=== PATIENT | male | born 1975 | race Caucasian/White ===

== ENCOUNTER → 2016-10-11 | Outpatient (CLI) | payer BC ==
[2016-10-11 16:40] LABS: ALT 56 U/L (21-72); AST 33 U/L (17-59)
[2016-10-11 17:30] LABS: Basophils % (A) 1 %; CH 33.4; CHCM 35.8; Eosinophils # (A) 0.1 k/uL (0-0.7); Eosinophils % (A) 3 %; HCT 45.1 % (39.0-53.0); HDW 2.77; HGB 15.3 gm/dL (13.0-17.5); Luc # (Auto) 0.08; Luc % (Auto) 2; Lymphocytes # (A) 1.4 k/uL (1.0-4.8); Lymphocytes % (A) 34 %; MCH 31.8 pg (25.0-35.0); MCV 93.7 fL (80.0-100.0); Mean Platelet Volume 7.8; Monocytes # (A) 0.3 k/uL (0-1.0); Monocytes % (A) 6 %; Neutrophils # (A) 2.3 k/uL (1.3-7.7); Neutrophils % (A) 55 %; RBC 4.81 m/uL (4.30-5.90); RDW 11.9 % (11.5-15.5); WBC 4.2 k/uL (3.8-10.6); WBC (Perox) 4.26
== END | disposition home or self-care (01) ==
LOC: LABWHC1 15:35
PROVIDERS: ATTEND Physician Assistant
DX: K76.9 Liver disease, unspecified (principal); R53.83 Other fatigue
CPT/HCPCS: 36415; 84450; 84460; 85025; 86480

== ENCOUNTER → 2017-05-03 | Outpatient (CLI) | payer BC ==
[2017-05-03 09:52] LABS: ALT 40 U/L (21-72); AST 31 U/L (17-59)
[2017-05-03 10:00] LABS: HCT 42.8 % (39.0-53.0); HDW 2.73; HGB 16.3 gm/dL (13.0-17.5); MCH 36.1 pg (25.0-35.0); MCV 94.8 fL (80.0-100.0); RBC 4.51 m/uL (4.30-5.90); RDW 18.7 % (11.5-15.5); WBC 4.8 k/uL (3.8-10.6); WBC (Perox) 5.91
[2017-05-03 10:01] LABS: Anisocytosis Moderate; Basophils % (A) 1 %; Eosinophils % (A) 3 %; Lymphocytes % (A) 36 %; Mean Platelet Volume 8.8; Monocytes % (A) 13 %; Neutrophils % (A) 44 %
[2017-05-03 10:02] LABS: Eosinophils # (A) 0.2 k/uL (0-0.7); Luc # (Auto) 0.17; Luc % (Auto) 4; Lymphocytes # (A) 1.7 k/uL (1.0-4.8); Monocytes # (A) 0.6 k/uL (0-1.0); Neutrophils # (A) 2.1 k/uL (1.3-7.7)
== END | disposition home or self-care (01) ==
LOC: LABWHC1 09:07
PROVIDERS: ATTEND Physician Assistant
DX: R53.83 Other fatigue (principal)
CPT/HCPCS: 36415; 84450; 84460; 85025; 86480

== ENCOUNTER → 2017-06-24 | Outpatient (CLI) | payer BC ==
[2017-06-24 14:47] LABS: Basophils % (A) 1 %; CH 33.3; Eosinophils # (A) 0.2 k/uL (0-0.7); Eosinophils % (A) 4 %; HCT 45.2 % (39.0-53.0); HGB 15.6 gm/dL (13.0-17.5); Luc % (Auto) 2; Lymphocytes % (A) 37 %; MCH 32.9 pg (25.0-35.0); MCHC 34.5 g/dL (31.0-37.0); MCV 95.4 fL (80.0-100.0); Mean Platelet Volume 6.3; Monocytes # (A) 0.3 k/uL (0-1.0); Monocytes % (A) 6 %; Neutrophils # (A) 2.7 k/uL (1.3-7.7); Neutrophils % (A) 50 %; RBC 4.74 m/uL (4.30-5.90); RDW 12.1 % (11.5-15.5); WBC 5.4 k/uL (3.8-10.6); WBC (Perox) 5.02
[2017-06-24 14:51] LABS: ALT 50 U/L (21-72); AST 32 U/L (17-59); Alkaline Phosphatase 71 U/L (38-126); Anion Gap 9 mmol/L; Blood Urea Nitrogen 15 mg/dL (9-20); Calcium 9.9 mg/dL (8.4-10.2); Carbon Dioxide 28 mmol/L (22-30); Chloride 105 mmol/L (98-107); Cholesterol 259 mg/dL (<200); Glucose 94 mg/dL (74-99); HDL Cholesterol 52 mg/dL (40-60); Non-African American GFR(MDRD) >60 (>60 ml/min/1.73 sqM); Potassium 5.5 mmol/L (3.5-5.1); Sodium 142 mmol/L (137-145); Total Bilirubin 0.7 mg/dL (0.2-1.3); Total Protein 7.3 g/dL (6.3-8.2)
== END | disposition home or self-care (01) ==
LOC: LABWHC1 14:07
PROVIDERS: ATTEND Physician Assistant
DX: Z00.00 Encounter for general adult medical examination without abnormal findings (principal); R53.83 Other fatigue; Z13.220 Encounter for screening for lipoid disorders
CPT/HCPCS: 36415; 80053; 80061; 82306; 84439; 84443; 85025

== ENCOUNTER → 2017-12-25 | Outpatient (CLI) | payer BC ==
[2017-12-25 15:05] LABS: Basophils % (A) 1 %; Eosinophils # (A) 0.3 k/uL (0-0.7); Eosinophils % (A) 4 %; HCT 43.1 % (39.0-53.0); HGB 15.3 gm/dL (13.0-17.5); Lymphocytes # (A) 2.8 k/uL (1.0-4.8); Lymphocytes % (A) 38 %; MCH 32.3 pg (25.0-35.0); MCHC 35.4 g/dL (31.0-37.0); MCV 91.4 fL (80.0-100.0); Mean Platelet Volume 6.8; Monocytes # (A) 0.3 k/uL (0-1.0); Monocytes % (A) 4 %; Neutrophils # (A) 3.6 k/uL (1.3-7.7); Neutrophils % (A) 50 %; Platelet Count 316 k/uL (150-450); RBC 4.72 m/uL (4.30-5.90); RDW 12.1 % (11.5-15.5); WBC 7.2 k/uL (3.8-10.6)
== END | disposition home or self-care (01) ==
LOC: LABWHC1 14:40
PROVIDERS: ATTEND Physician Assistant
DX: R53.83 Other fatigue (principal); K76.9 Liver disease, unspecified
CPT/HCPCS: 36415; 85025; 86480

== ENCOUNTER → 2018-05-21 | Outpatient (CLI) | payer BC ==
[2018-05-21 17:47] LABS: Basophils % (A) 1 %; Eosinophils # (A) 0.2 k/uL (0-0.7); Eosinophils % (A) 3 %; HCT 43.7 % (39.0-53.0); HGB 14.6 gm/dL (13.0-17.5); Lymphocytes # (A) 2.2 k/uL (1.0-4.8); Lymphocytes % (A) 35 %; MCHC 33.5 g/dL (31.0-37.0); MCV 92.5 fL (80.0-100.0); Mean Platelet Volume 6.9; Monocytes # (A) 0.3 k/uL (0-1.0); Monocytes % (A) 5 %; Neutrophils # (A) 3.4 k/uL (1.3-7.7); Neutrophils % (A) 55 %; Platelet Count 301 k/uL (150-450); RBC 4.72 m/uL (4.30-5.90); WBC 6.3 k/uL (3.8-10.6)
[2018-05-21 18:05] LABS: ALT 34 U/L (21-72); AST 31 U/L (17-59); Albumin 4.3 g/dL (3.5-5.0); Alkaline Phosphatase 66 U/L (38-126); Anion Gap 7 mmol/L; Blood Urea Nitrogen 11 mg/dL (9-20); Calcium 9.4 mg/dL (8.4-10.2); Carbon Dioxide 27 mmol/L (22-30); Chloride 106 mmol/L (98-107); Glucose 114 mg/dL (74-99); Potassium 4.5 mmol/L (3.5-5.1); Sodium 140 mmol/L (137-145); Total Bilirubin 0.4 mg/dL (0.2-1.3)
== END | disposition home or self-care (01) ==
LOC: LABWHC1 16:51
PROVIDERS: ATTEND Physician Assistant
DX: K76.9 Liver disease, unspecified (principal); R53.83 Other fatigue
CPT/HCPCS: 36415; 80053; 85025

== ENCOUNTER → 2018-11-27 | Outpatient (CLI) | payer BC ==
[2018-11-27 14:13] LABS: Basophils # (A) 0.1 k/uL (0-0.2); Basophils % (A) 1 %; Eosinophils # (A) 0.3 k/uL (0-0.7); Eosinophils % (A) 4 %; HCT 42.8 % (39.0-53.0); HGB 14.9 gm/dL (13.0-17.5); Lymphocytes # (A) 2.4 k/uL (1.0-4.8); Lymphocytes % (A) 39 %; MCH 31.4 pg (25.0-35.0); MCHC 34.7 g/dL (31.0-37.0); MCV 90.6 fL (80.0-100.0); Mean Platelet Volume 6.2; Monocytes # (A) 0.3 k/uL (0-1.0); Monocytes % (A) 5 %; Neutrophils % (A) 50 %; Platelet Count 265 k/uL (150-450); RBC 4.73 m/uL (4.30-5.90); RDW 11.8 % (11.5-15.5); WBC 6.1 k/uL (3.8-10.6)
[2018-11-27 20:09] LABS: ALT 38 U/L (10-49); AST 35 U/L (14-35)
== END ==
LOC: LABWHC1 12:52
PROVIDERS: ATTEND Physician Assistant
DX: L40.9 Psoriasis, unspecified (principal)
CPT/HCPCS: 36415; 84450; 84460; 85025; 86480

== ENCOUNTER → 2019-02-15 | Outpatient (CLI) | payer BC ==
[2019-02-15 07:50] LABS: Basophils # (A) 0.1 k/uL (0-0.2); Basophils % (A) 1 %; Eosinophils # (A) 0.2 k/uL (0-0.7); Eosinophils % (A) 3 %; HCT 44.1 % (39.0-53.0); HGB 14.9 gm/dL (13.0-17.5); Lymphocytes # (A) 2.6 k/uL (1.0-4.8); Lymphocytes % (A) 39 %; MCH 31.3 pg (25.0-35.0); MCHC 33.7 g/dL (31.0-37.0); MCV 92.8 fL (80.0-100.0); Mean Platelet Volume 7.1; Monocytes # (A) 0.3 k/uL (0-1.0); Monocytes % (A) 4 %; Neutrophils # (A) 3.4 k/uL (1.3-7.7); Neutrophils % (A) 50 %; Platelet Count 296 k/uL (150-450); RBC 4.76 m/uL (4.30-5.90); RDW 13.6 % (11.5-15.5); WBC 6.7 k/uL (3.8-10.6)
[2019-02-15 11:41] LABS: ALT 40 U/L (10-49); AST 36 U/L (14-35); African American GFR (CKD) 120.8 (60.0-200.0); Albumin/Globulin Ratio 1.87 (1.60-3.17); Alkaline Phosphatase 66 U/L (41-126); BUN/Creat Ratio 11.11 Ratio (12.00-20.00); Calcium 9.5 mg/dL (8.7-10.3); Chloride 108 mmol/L (96-109); Cholesterol 251 mg/dL (0-200); Globulin 2.3 g/dL (1.6-3.3); Glucose 81 mg/dL (70-110); Potassium 4.4 mmol/L (3.5-5.5); Sodium 141 mmol/L (135-145); Total Bilirubin 0.5 mg/dL (0.3-1.2); Total Protein 6.6 g/dL (6.2-8.2)
== END | disposition home or self-care (01) ==
LOC: LABWHC1 06:44
PROVIDERS: ATTEND Physician Assistant
DX: R53.83 Other fatigue (principal); Z13.220 Encounter for screening for lipoid disorders
CPT/HCPCS: 36415; 80053; 80061; 82306; 83721; 84439; 84443; 85025

== ENCOUNTER → 2019-05-17 | Outpatient (CLI) | payer BC ==
[2019-05-17 12:13] LABS: Basophils # (A) 0.1 k/uL (0-0.2); Basophils % (A) 1 %; Eosinophils # (A) 0.3 k/uL (0-0.7); Eosinophils % (A) 4 %; HCT 45.8 % (39.0-53.0); HGB 15.9 gm/dL (13.0-17.5); Lymphocytes # (A) 2.3 k/uL (1.0-4.8); Lymphocytes % (A) 39 %; MCH 32.5 pg (25.0-35.0); MCHC 34.8 g/dL (31.0-37.0); MCV 93.4 fL (80.0-100.0); Mean Platelet Volume 6.9; Monocytes # (A) 0.3 k/uL (0-1.0); Monocytes % (A) 5 %; Neutrophils % (A) 49 %; Platelet Count 285 k/uL (150-450); RDW 14.1 % (11.5-15.5)
[2019-05-17 13:01] LABS: Erythrocyte Sedimentation Rate 3 mm/hr (0-15)
[2019-05-17 16:23] LABS: African American GFR (CKD) 106.4 (60.0-200.0); Albumin 4.6 g/dL (3.80-4.90); Albumin/Globulin Ratio 2.3 (1.60-3.17); Anion Gap 6.2 mmol/L (4.00-12.00); Calcium 9.8 mg/dL (8.7-10.3); Carbon Dioxide 28.8 mmol/L (21.6-31.8); Potassium 5.2 mmol/L (3.5-5.5); Total Bilirubin 0.7 mg/dL (0.2-1.2); Total Protein 6.6 g/dL (6.2-8.2)
== END | disposition home or self-care (01) ==
LOC: LABWHC1 11:20
PROVIDERS: ATTEND Physician Assistant
DX: R53.83 Other fatigue (principal); R63.4 Abnormal weight loss; E78.2 Mixed hyperlipidemia
CPT/HCPCS: 36415; 80053; 82105; 82150; 82607; 83690; 85025; 85652

== ENCOUNTER → 2019-05-25 | Outpatient (CLI) | payer BC ==
--- NOTE | 2019-05-25 11:09 | ECHOS ---
STRESS ECHOCARDIOGRAM INDICATIONS: Chest pain. MEDICATIONS: Vitamin D3, B12 BASELINE HEART RATE: 84 BASELINE BLOOD PRESSURE: 124/76 MAXIMUM HEART RATE: 176 MAXIMUM BLOOD PRESSURE: 175/75 METS: 11.5 MAXIMUM STAGE REACHED: 4 TOTAL EXERCISE TIME: 10:10 CLINICAL INFORMATION: Baseline rhythm is sinus mechanism, rate of 84, left axis deviation, poor R-Wave progression, baseline blood pressure 124/76 mmHg. Patient exercised on Rakan protocol for 10 minute 10 seconds reaching a peak rate 176 beats per minute which is equal to 99% maximum predicted heart rate. Peak blood pressure 179/75 mmHg. Test was terminated due to fatigue. There was no chest pain. Electrocardiographic monitoring revealed no evidence of diagnostic ischemic ST deviation. Baseline echocardiogram revealed normal wall thickening and motion. At peak exercise, there was normal wall motion and augmentation with no hypokinesis or dyskinesis. CONCLUSION: 1. Good exercise tolerance with normal electrocardiograph response to exercise. 2. Normal stress echocardiogram with no evidence of stress-induced ischemia. MMODL / IJN: [id number] /
== END | disposition home or self-care (01) ==
LOC: RADNMMAIN 08:54
PROVIDERS: ATTEND Internal Medicine
DX: R07.9 Chest pain, unspecified (principal)
CPT/HCPCS: 93351

== ENCOUNTER → 2019-05-31 | Outpatient (CLI) | payer BC ==
--- NOTE | 2019-05-31 07:51 | US ---
EXAMINATION TYPE: US liver DATE OF EXAM: 05/31/2019 COMPARISON: NONE CLINICAL HISTORY: R63.4 Abnormal weight loss. EXAM MEASUREMENTS: Liver Length: 16.8 cm Gallbladder Wall: 0.3 cm CBD: 0.4 cm Right Kidney: 10.8 x 4.6 x 4.8 cm Pancreas: Mostly obscured by bowel gas, portions visualized wnl Liver: upper limits of normal size, cyst seen in left lobe measuring 1.2 x 0.8 x 1.0cm Gallbladder: Gallbladder wall is upper limits of normal size. Evidence for sonographic Real's sign: No CBD: wnl Right Kidney: wnl IMPRESSION: 1. No sonographic evidence of acute cholecystitis however the gallbladder wall is upper limits of nor mal in size and can be seen in biliary dysfunction. HIDA scan with CCK could assess for biliary dyski nesia or chronic cholecystitis. 2. Incidentally noted simple appearing benign left lobe hepatic cyst. 3. Pancreas is largely obscured by bowel gas.
== END | disposition home or self-care (01) ==
LOC: RADUSWWP 06:49
PROVIDERS: ATTEND Internal Medicine
DX: K76.89 Other specified diseases of liver (principal)
CPT/HCPCS: 76705

== ENCOUNTER → 2019-07-05 | Outpatient (CLI) | payer BC ==
--- NOTE | 2019-07-06 07:37 | CT ---
EXAMINATION TYPE: CT ChestAbdPelvis w con DATE OF EXAM: 07/05/2019 COMPARISON: Liver ultrasound dated 05/31/2019 HISTORY: abdominal pain, abnormal weight loss CT DLP: 1128.9 mGycm. Automated Exposure Control for Dose Reduction was Utilized. CONTRAST: CT scan of the thorax, abdomen and pelvis is performed with IV Contrast, patient injected with 100 mL of Isovue 300. FINDINGS: LUNGS: The lungs are grossly clear, there is no concerning parenchymal mass or nodule identified. Ve ry minimal right basilar dependent subsegmental atelectasis is seen. There is no pleural effusion or pneumothorax seen. The tracheobronchial tree is patent. MEDIASTINUM: There are no greater than 1 cm hilar or mediastinal lymph nodes. No pericardial effusi on is seen. There are trace coronary calcifications. LIVER/GB: Hepatic parenchyma is diffusely hypoattenuated in comparison to that of the spleen, most co mmonly seen in hepatic steatosis. This finding limits evaluation for hepatic masses. As seen on the p rior ultrasound of the liver of 05/31/2019 there is a left hepatic cyst measuring approximately 1 cm. No intrahepatic biliary ductal dilatation. No cholelithiasis. PANCREAS: No significant abnormality is seen. No ductal dilatation. SPLEEN: No significant abnormality is seen. ADRENALS: No significant abnormality is seen. KIDNEYS: Kidneys enhance and excrete symmetrically without hydronephrosis. Urinary bladder is incompl etely distended. BOWEL: Appendix appears surgically absent. Incomplete distention of the sigmoid colon is seen, probab le colonic spasm on image 112. This is seen more distally of the sigmoid colon, again favoring coloni c spasm and coronal image 64. No proximal obstruction. Large and small bowel are within normal limits size without dilation. GENITAL ORGANS: Prostatic gland central zone calcifications are seen. LYMPH NODES: No greater than 1cm abdominal or pelvic lymph nodes are appreciated. OSSEOUS STRUCTURES: Mild multilevel degenerative changes of the spine and femoral acetabular joints. IMPRESSION: 1. No suspicious visceral or mesenteric mass in the chest, abdomen, or pelvis to correspond with this patient's abnormal weight loss. 2. Hepatic steatosis appears overall mild in degree with a simple benign hepatic cyst also seen on th e prior ultrasound of 05/31/2019. 3. The sigmoid colon demonstrates 2 areas of narrowing, likely colonic spasm. Colonoscopy could be co nsidered in this patient with weight loss if not recently performed to exclude the less likely possib ility of neoplasm.
== END | disposition home or self-care (01) ==
LOC: RADCTMAIN 15:10
PROVIDERS: ATTEND Internal Medicine
DX: R63.4 Abnormal weight loss (principal); K76.0 Fatty (change of) liver, not elsewhere classified
CPT/HCPCS: 71260; 74177; Q9967

== ENCOUNTER 2019-08-03 10:30 | Day surgery (SDC) | payer BC ==
[2019-07-28 18:11] VITALS: BMI 25.7
[~2019-08-03 10:30] MED LIST: LACTATED RINGERS 1,000 ML IV SCH
[2019-08-03 11:16] VITALS: TEMP 98.1
[2019-08-03] MEDS ORDERED: LIDOCAINE 1% 20 ML VIAL (10MG/ML) FOR IV START INTRADERMA ONE (11:18)
[2019-08-03] MEDS ORDERED: PROPOFOL 10 MG/ML 20 ML VIAL IV ONE (11:54)
--- NOTE | 2019-08-03 12:40 | P.PCN ---
Date of Procedure: 08/03/19 Description of Procedure: BRIEF HISTORY: Patient is a 44-year-old pleasant male scheduled for an elective colonoscopy as a part of screening. The patient reports that he was recently taken off Humira. He has suffered unintentional weight loss. No change in bowel habits or blood per rectum. However CT imaging did show abnormalities of the abdomen which required further investigation per his history. He denies any family history of colon cancer. PROCEDURE PERFORMED: Colonoscopy with polypectomy . PREOPERATIVE DIAGNOSIS: Screening for malignant neoplasm of the colon, abnormal computed tomography scan abdomen, no prior colonoscopy ESTIMATED BLOOD LOSS: Minimal. IV sedation per Anesthesia. PROCEDURE: After informed consent was obtained, the patient, was brought into the endoscopy unit. IV sedation was administered by Anesthesia under continuous monitoring. Digital rectal examination was normal. Initially the Olympus CF-190 flexible video colonoscope was then inserted in the rectum, gradually advanced into the cecum without any difficulty. Careful examination was performed as the scope was gradually being withdrawn. Ileocecal valve and the appendiceal orifice were visualized and appeared normal. The terminal ileum was intubated and appeared normal. Prep was excellent. Mucosa of the cecum, ascending colon, transverse colon, descending colon, sigmoid colon, and rectum appeared normal. Pedunculated 9 mm ascending colon polyp removed with hot snare polypectomy. Diminutive 2 mm transverse colon with cold forcep polypectomy. Retroflexion was performed in the rectum and no lesions were seen, Low-grade internal hemorrhoids and skin tags noted on retroflexion. The patient tolerated the procedure well. IMPRESSION: Pedunculated ascending colon polyp removed with hot snare polypectomy. Diminutive transverse colon polyp removed with cold forcep polypectomy. No masses or other gross abnormalities noted to correlate with computed tomography scan findings. RECOMMENDATIONS: Findings of this examination were discussed with the patient. Okay to resume diet. Okay to resume medications. Anticipate repeat colonoscopy in 5 years for colon polyps, pending pathology from polypectomies.
[2019-08-03 12:41] VITALS: RESP 14
[2019-08-03 13:00] VITALS: BP 121/76; PULSE 67
== END 2019-08-03 13:09 | disposition home or self-care (01) ==
LOC: ORWHC2ENDO 10:30
PROVIDERS: ATTEND Internal Medicine
DX: Z12.11 Encounter for screening for malignant neoplasm of colon (principal); D12.2 Benign neoplasm of ascending colon; D12.3 Benign neoplasm of transverse colon; E78.5 Hyperlipidemia, unspecified; J45.909 Unspecified asthma, uncomplicated; F17.210 Nicotine dependence, cigarettes, uncomplicated; R10.9 Unspecified abdominal pain; R63.4 Abnormal weight loss; R53.83 Other fatigue; L40.9 Psoriasis, unspecified; Z90.49 Acquired absence of other specified parts of digestive tract; Z98.890 Other specified postprocedural states
CPT/HCPCS: 88305; 45380; 45385; J2704

== ENCOUNTER 2020-03-31 21:52 | Emergency (ER) | payer OTHER, BC ==
[2020-03-31] MEDS ORDERED: DIPH,PERTUS(ACELL)TETVAC-LF 0.5 ML VIAL IM ONE (22:05)
[2020-03-31] MEDS ORDERED: HYDROmorphone 1 MG/ML 1 ML SYRINGE IVP STA (22:05)
[2020-03-31 22:31] LABS: Basophils # (A) 0.1 k/uL (0-0.2); Basophils % (A) 1 %; Eosinophils # (A) 0.2 k/uL (0-0.7); Eosinophils % (A) 2 %; HCT 47.7 % (39.0-53.0); HGB 15.8 gm/dL (13.0-17.5); Lymphocytes # (A) 1.7 k/uL (1.0-4.8); Lymphocytes % (A) 18 %; MCH 31.7 pg (25.0-35.0); MCHC 33.1 g/dL (31.0-37.0); MCV 95.8 fL (80.0-100.0); Mean Platelet Volume 6.9; Monocytes # (A) 0.4 k/uL (0-1.0); Monocytes % (A) 4 %; Neutrophils % (A) 74 %; Platelet Count 297 k/uL (150-450); RBC 4.98 m/uL (4.30-5.90); RDW 11.8 % (11.5-15.5); WBC 9.4 k/uL (3.8-10.6)
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
[2020-03-31 22:39] LABS: ALT 37 U/L (4-49); AST 40 U/L (17-59); African American GFR (CKD) >90 (>60 ml/min/1.73 sqM); Albumin 4.7 g/dL (3.5-5.0); Alkaline Phosphatase 73 U/L (38-126); Anion Gap 12 mmol/L; Blood Urea Nitrogen 11 mg/dL (9-20); Calcium 9.6 mg/dL (8.4-10.2); Carbon Dioxide 23 mmol/L (22-30); Chloride 102 mmol/L (98-107); Creatine Kinase 232 U/L (55-170); Glucose 102 mg/dL (74-99); Non-African American GFR(CKD) >90 (>60 ml/min/1.73 sqM); Potassium 3.8 mmol/L (3.5-5.1); Sodium 137 mmol/L (137-145); Total Bilirubin 0.5 mg/dL (0.2-1.3); Total Protein 7.2 g/dL (6.3-8.2)
[2020-03-31 22:40] LABS: Alcohol 48 mg/dL; Amylase 84 U/L (30-110); Lipase 146 U/L (23-300)
[2020-03-31 22:46] LABS: INR 0.9 (<1.2); Partial Thromboplastin Time 21.4 sec (22.0-30.0); Prothrombin Time 9.6 sec (9.0-12.0)
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
[2020-03-31] MEDS ORDERED: BACITRACIN OINT 1 EACH PACKET TOPICAL ONE (22:47)
[2020-03-31 22:50] LABS: Creatine Kinase MB 1.8 ng/mL (0.0-2.4); Troponin I <0.012 ng/mL (0.000-0.034)
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
[2020-03-31] MEDS ORDERED: LIDOCAINE 1% INJ 10MG/ML (20 ML MDV) SQ ONE (23:09)
[2020-03-31 23:46] VITALS: BP 126/87; PULSE 83; RESP 18; TEMP 98.4
--- NOTE | 2020-04-02 16:22 | CDI ---
Dear Dr. Velásquez,Leonel Servin MD Please do addendum to for laceration repair length in cms , length was not mentioned. Thank you, Michelle Moore [employer] Operator If you have any questions, please contact [employer] at [phone] [facility]
== END 2020-03-31 23:40 | disposition home or self-care (01) ==
LOC: EC 21:52
DX: S81.012A Laceration without foreign body, left knee, initial encounter (principal); S80.812A Abrasion, left lower leg, initial encounter; S40.812A Abrasion of left upper arm, initial encounter; Z23 Encounter for immunization; R07.9 Chest pain, unspecified; V28.4XXA Motorcycle driver injured in noncollision transport accident in traffic accident, initial encounter; Y92.488 Other paved roadways as the place of occurrence of the external cause; Y93.55 Activity, bike riding
CPT/HCPCS: 99285; 96374; 90471; 12001; 36415; 86900; 86901; 80053; 82150; 82550; 82553; 83605; 83690; 84484; 85025; 85610; 85730; 86850; 80320; 71045; 71260; 74177; 90715; J2001; J1170; Q9967

== ENCOUNTER → 2021-02-15 | Outpatient (CLI) | payer BC ==
[2021-02-15 23:08] LABS: Basophils # (A) 0.03 X 10*3/uL (0.00-0.10); Basophils % (A) 0.7 %; Eosinophils # (A) 0.13 X 10*3/uL (0.04-0.35); Eosinophils % (A) 2.9 %; HCT 42.6 % (39.6-50.0); HGB 14.6 g/dL (13.0-17.0); Lymphocytes # (A) 1.31 X 10*3/uL (0.90-5.00); Lymphocytes % (A) 29.7 %; MCH 33.3 pg (27.0-32.0); MCHC 34.3 g/dL (32.0-37.0); MCV 97.3 fL (80.0-97.0); Mean Platelet Volume 9.7 fL (9.5-12.2); Monocytes # (A) 0.31 X 10*3/uL (0.20-1.00); Platelet Count 260 X 10*3/uL (140-440); RBC 4.38 X 10*6/uL (4.40-5.60); RDW 11.9 % (11.5-14.5); WBC 4.41 X 10*3/uL (4.50-10.00)
[2021-02-15 23:57] LABS: INR 0.9 (0.90-1.11); Partial Thromboplastin Time 26.2 sec (23.5-31.0); Prothrombin Time 9.9 sec (9.9-11.9)
[2021-02-16 00:02] LABS: Cardiolipin Ab IgG Interp NEGATIVE (NEGATIVE); Cardiolipin Ab IgM Interp NEGATIVE (NEGATIVE); Cardiolipin IgA Antibody <2.0 U/mL; Cardiolipin IgM Antibody <1.5 U/mL
[2021-02-16 04:56] LABS: Hemoglobin A1C 4.6 % (4.0-6.0)
[2021-02-16 05:28] LABS: Albumin 4.3 g/dL (3.80-4.90); Albumin/Globulin Ratio 1.87 (1.60-3.17); Anion Gap 8.1 mmol/L (4.00-12.00); BUN/Creat Ratio 17.5 Ratio (12.00-20.00); Calcium 8.9 mg/dL (8.7-10.3); Carbon Dioxide 22.9 mmol/L (21.6-31.8); Chol/HDL Ratio 4.5; Globulin 2.3 g/dL (1.6-3.3); Non-African American GFR(CKD) 107.9 (60.0-200.0); Potassium 4.4 mmol/L (3.5-5.5); Total Bilirubin 0.5 mg/dL (0.2-1.2); Total Protein 6.6 g/dL (6.2-8.2)
== END | disposition home or self-care (01) ==
LOC: LABWHC1 13:53
PROVIDERS: ATTEND Otolaryngology Facial Plastic Surgery
DX: Z00.00 Encounter for general adult medical examination without abnormal findings (principal); Z12.5 Encounter for screening for malignant neoplasm of prostate; Z83.2 Family history of diseases of the blood and blood-forming organs and certain disorders involving the immune mechanism
CPT/HCPCS: 36415; 80053; 80061; 83036; 84153; 84443; 85025; 85246; 85610; 85730; 86147

== ENCOUNTER → 2021-09-28 | Outpatient (CLI) | payer BC ==
--- NOTE | 2021-09-28 11:54 | XR ---
Limited cervical spine HISTORY: Pain, M79.643 L40.9 M54.2 3 views of the cervical spine No comparisons reversal the normal cervical lordosis could be due to muscle spasm. Prevertebral soft tissues are normal. Cervical vertebral bodies show preserved height and bone mineralization. Disc spa severiano are maintained. IMPRESSION: No acute fracture or subluxation. Reversed cervical stenosis.
--- NOTE | 2021-09-28 11:57 | XR ---
Bilateral hands HISTORY: M79.643 L40.9 M54.2 3 views of each hand are submitted on a total 6 images Bone mineralization, joint spaces and alignment are maintained. Well-defined cystic focus within the distal third metacarpal the left hand shows a nonaggressive appearance, possible bone cyst. No eviden t erosion or periostitis. No fracture or dislocation bilaterally within the hands. impression: No significant arthropathy or evident fracture or dislocation.
--- NOTE | 2021-09-28 11:58 | XR ---
Right shoulder HISTORY: M79.643 L40.9 M54.2 3 views the right shoulder Distal acromion is slightly downturned. Right lung as visualized is normal. Bone mineralization, join t spaces and alignment are maintained. No fracture or dislocation. IMPRESSION: Downturned distal acromion. Correlate for possible impingement, consider alternate imagin g as indicated.
--- NOTE | 2021-09-28 11:59 | XR ---
EXAMINATION TYPE: XR chest 2V DATE OF EXAM: 09/28/2021 COMPARISON: Chest x-ray 03/31/2020 HISTORY: Pain, M79.643 L40.9 M54.2 TECHNIQUE: Frontal and lateral views of the chest are obtained. FINDINGS: There is no focal air space opacity, pleural effusion, or pneumothorax seen. The cardiac silhouette size is within normal limits. The osseous structures are intact. IMPRESSION: No acute cardiopulmonary process.
== END | disposition home or self-care (01) ==
LOC: RADXRMAIN 10:30
PROVIDERS: ATTEND Internal Medicine Rheumatology
DX: M48.02 Spinal stenosis, cervical region (principal); M25.811 Other specified joint disorders, right shoulder; M79.643 Pain in unspecified hand; L40.9 Psoriasis, unspecified
CPT/HCPCS: 71046; 72040

== ENCOUNTER → 2021-10-01 | Outpatient (CLI) | payer BC ==
[2021-10-01 18:36] LABS: Creatine Kinase 139 U/L (35-257)
[2021-10-01 19:00] LABS: Rheumatoid Factor, Qnt <10 IU/mL (0-15)
[2021-10-01 19:01] LABS: Hepatitis B Surface Antibody Reactive (Nonreactive)
[2021-10-01 19:10] LABS: Hepatitis B Core IgM Nonreactive (Nonreactive); Hepatitis B Surface Antigen Nonreactive (Nonreactive); Hepatitis C IgG Antibody Nonreactive (Nonreactive)
[2021-10-02 01:19] LABS: Cyclic Citrull Pep IgG Unit <0.5 U/mL; Cyclic Citrullinated Pep IgG NEGATIVE (NEGATIVE)
[2021-10-02 11:05] LABS: HLA B27 NEGATIVE
== END | disposition home or self-care (01) ==
LOC: LABWHC1 13:08
PROVIDERS: ATTEND Internal Medicine Rheumatology
DX: M54.2 Cervicalgia (principal); M79.643 Pain in unspecified hand; L40.9 Psoriasis, unspecified
CPT/HCPCS: 36415; 82550; 83520; 85652; 86038; 86200; 86431; 86480; 86704; 86705; 86706; 86803; 86812; 87340

== ENCOUNTER → 2022-04-10 | Outpatient (CLI) | payer BC ==
[2022-04-10 10:41] LABS: Estimated Average Glucose UNC
[2022-04-10 10:42] LABS: Basophils # (A) 0.03 X 10*3/uL (0.00-0.10); Basophils % (A) 0.5 %; Eosinophils # (A) 0.13 X 10*3/uL (0.04-0.35); Eosinophils % (A) 2.1 %; HCT 43.8 % (39.6-50.0); HGB 14.9 g/dL (13.0-17.0); Immature Grans, Automated 0.5 %; Lymphocytes % (A) 32.9 %; MCH 32.7 pg (27.0-32.0); MCV 96.3 fL (80.0-97.0); Mean Platelet Volume 9.7 fL (9.5-12.2); Monocytes # (A) 0.42 X 10*3/uL (0.20-1.00); Monocytes % (A) 6.9 %; NRBC Per 100 WBC 0 /100 WBCS (0.0-0.0); Neutrophils # (A) 3.46 X 10*3/uL (1.80-7.70); Neutrophils % (A) 57.1 %; Platelet Count 266 X 10*3/uL (140-440); RBC 4.55 X 10*6/uL (4.40-5.60); RDW 11.7 % (11.5-14.5); WBC 6.07 X 10*3/uL (4.50-10.00)
[2022-04-10 11:09] LABS: ALT 31 U/L (10-49); AST 31 U/L (14-35); African American GFR (CKD) 100.5 (60.0-200.0); Albumin 4.6 g/dL (3.8-4.9); Albumin/Globulin Ratio 1.88 (1.60-3.17); Alkaline Phosphatase 67 U/L (41-126); BUN/Creat Ratio 13.79 Ratio (12.00-20.00); Blood Urea Nitrogen 14.2 mg/dL (9.0-27.0); Calcium 9.6 mg/dL (8.7-10.3); Carbon Dioxide 24.6 mmol/L (20.0-27.5); Chloride 103 mmol/L (96-109); Chol/HDL Ratio 5.23 Ratio; Globulin 2.5 g/dL (1.6-3.3); Glucose 87 mg/dL (70-110); LDL Cholesterol,Calculated 145.5 mg/dL (0.0-131.0); Non-African American GFR(CKD) 86.7 (60.0-200.0); Potassium 4.3 mmol/L (3.5-5.5); Sodium 140 mmol/L (135-145); Total Protein 7.1 g/dL (6.2-8.2); Uric Acid 6.2 mg/dL (3.7-8.7)
== END | disposition home or self-care (01) ==
LOC: LABWHC1 06:55
PROVIDERS: ATTEND Family Medicine
DX: Z00.00 Encounter for general adult medical examination without abnormal findings (principal); Z12.5 Encounter for screening for malignant neoplasm of prostate; F10.10 Alcohol abuse, uncomplicated; M10.9 Gout, unspecified
CPT/HCPCS: 36415; 80053; 80061; 82607; 82746; 83036; 84153; 84425; 84439; 84443; 84550; 85025

== ENCOUNTER → 2022-05-04 | Outpatient (CLI) | payer BC ==
[2022-05-04 11:47] LABS: Basophils # (A) 0.05 X 10*3/uL (0.00-0.10); Basophils % (A) 0.8 %; Eosinophils # (A) 0.15 X 10*3/uL (0.04-0.35); Eosinophils % (A) 2.4 %; HCT 40.2 % (39.6-50.0); HGB 13.9 g/dL (13.0-17.0); Immature Grans, Automated 0.3 %; Lymphocytes # (A) 2.64 X 10*3/uL (0.90-5.00); Lymphocytes % (A) 42.4 %; MCH 32.6 pg (27.0-32.0); MCHC 34.6 g/dL (32.0-37.0); MCV 94.1 fL (80.0-97.0); Mean Platelet Volume 9.8 fL (9.5-12.2); Monocytes # (A) 0.36 X 10*3/uL (0.20-1.00); Monocytes % (A) 5.8 %; NRBC Per 100 WBC 0 /100 WBCS (0.0-0.0); Neutrophils % (A) 48.3 %; Platelet Count 299 X 10*3/uL (140-440); RBC 4.27 X 10*6/uL (4.40-5.60); RDW 11.3 % (11.5-14.5); WBC 6.22 X 10*3/uL (4.50-10.00)
== END | disposition home or self-care (01) ==
LOC: LABWHC1 08:29
PROVIDERS: ATTEND Dermatology
DX: K76.9 Liver disease, unspecified (principal); R53.83 Other fatigue
CPT/HCPCS: 36415; 85025

== ENCOUNTER → 2022-11-07 | Outpatient (CLI) | payer BC ==
[2022-11-07 22:53] LABS: Basophils # (A) 0.04 X 10*3/uL (0.00-0.10); Basophils % (A) 0.7 %; Eosinophils # (A) 0.11 X 10*3/uL (0.04-0.35); Eosinophils % (A) 1.9 %; HCT 41.1 % (39.6-50.0); HGB 13.8 g/dL (13.0-17.0); Immature Grans, Automated 0.3 %; Lymphocytes # (A) 1.53 X 10*3/uL (0.90-5.00); Lymphocytes % (A) 26.2 %; MCH 31.9 pg (27.0-32.0); MCHC 33.6 g/dL (32.0-37.0); MCV 95.1 fL (80.0-97.0); Mean Platelet Volume 9.4 fL (9.5-12.2); Monocytes # (A) 0.26 X 10*3/uL (0.20-1.00); Monocytes % (A) 4.5 %; NRBC Per 100 WBC 0 /100 WBCS (0.0-0.0); Neutrophils # (A) 3.88 X 10*3/uL (1.80-7.70); Neutrophils % (A) 66.4 %; Platelet Count 248 X 10*3/uL (140-440); RBC 4.32 X 10*6/uL (4.40-5.60); RDW 11.6 % (11.5-14.5); WBC 5.84 X 10*3/uL (4.50-10.00)
== END | disposition home or self-care (01) ==
LOC: LABWHC1 16:27
PROVIDERS: ATTEND Physician Assistant
DX: K76.9 Liver disease, unspecified (principal); R53.83 Other fatigue
CPT/HCPCS: 36415; 85025; 86480

== ENCOUNTER → 2023-05-10 | Outpatient (CLI) | payer BC ==
[2023-05-11 00:03] LABS: Basophils # (A) 0.04 X 10*3/uL (0.00-0.10); Basophils % (A) 0.7 %; Eosinophils # (A) 0.13 X 10*3/uL (0.04-0.35); Eosinophils % (A) 2.3 %; HCT 43.7 % (39.6-50.0); HGB 15.1 d/dL (13.0-17.0); Lymphocytes # (A) 1.77 X 10*3/uL (0.90-5.00); Lymphocytes % (A) 31.4 %; MCH 32.6 pg (27.0-32.0); MCHC 34.6 d/dL (32.0-37.0); MCV 94.4 FL (80.0-97.0); Mean Platelet Volume 9.8 FL (9.5-12.2); Monocytes # (A) 0.34 X 10*3/uL (0.20-1.00); NRBC Per 100 WBC 0 X 10*3/uL (0.00-0.01); Neutrophils # (A) 3.33 X 10*3/uL (1.80-7.70); Neutrophils % (A) 59.1 %; Platelet Count 262 X 10*3/uL (140-440); RBC 4.63 X 10*6/uL (4.40-5.60); RDW 11.5 % (11.5-14.5); WBC 5.64 X 10*3/uL (4.50-10.00)
== END | disposition home or self-care (01) ==
LOC: LABWHC1 09:51
PROVIDERS: ATTEND Dermatology
DX: R53.83 Other fatigue (principal)
CPT/HCPCS: 36415; 85025; 86480

== ENCOUNTER → 2023-10-27 | Outpatient (CLI) | payer BC ==
[2023-10-28 02:23] LABS: Appearance,Urine Cloudy (Clear); Bilirubin,Urine Negative (Negative); Blood,Urine Negative (Negative); Color,Urine Yellow (Yellow); Ketones,Urine Negative (Negative); Nitrite,Urine Negative (Negative); PH, Urine 5.5; Specific Gravity,Urine 1.021 (1.001-1.030); Urobilinogen,Urine 0.2 E.U./DL
[2023-10-28 02:29] LABS: Bacteria,Urine None Seen (None Seen)
[2023-10-28 02:40] LABS: Basophils # (A) 0.04 X 10*3/uL (0.00-0.10); Basophils % (A) 0.8 %; Eosinophils # (A) 0.13 X 10*3/uL (0.04-0.35); Eosinophils % (A) 2.5 %; HCT 47.6 % (39.6-50.0); Lymphocytes # (A) 1.85 X 10*3/uL (0.90-5.00); MCH 32.4 pg (27.0-32.0); MCHC 33.6 g/dL (32.0-37.0); MCV 96.4 FL (80.0-97.0); Mean Platelet Volume 9.4 FL (9.5-12.2); Monocytes # (A) 0.29 X 10*3/uL (0.20-1.00); Monocytes % (A) 5.5 %; NRBC Per 100 WBC 0 X 10*3/uL (0.00-0.01); Neutrophils # (A) 2.96 X 10*3/uL (1.80-7.70); Neutrophils % (A) 55.8 %; Platelet Count 260 X 10*3/uL (140-440); RBC 4.94 X 10*6/uL (4.40-5.60); RDW 12.4 % (11.5-14.5); WBC 5.29 X 10*3/uL (4.50-10.00)
[2023-10-28 02:56] LABS: % Iron Saturation 37.08 (15.00-50.00); ALT 100 U/L (10-49); AST 69 U/L (14-35); Albumin 4.8 g/dL (3.8-4.9); Albumin/Globulin Ratio 2.09 Ratio (1.60-3.17); Alkaline Phosphatase 76 U/L (41-126); Blood Urea Nitrogen 13.5 mg/dL (9.0-27.0); Calcium 9.8 mg/dL (8.7-10.3); Carbon Dioxide 26.1 mmol/L (21.6-31.8); Chloride 106 mmol/L (96-109); Chol/HDL Ratio 2.51 Ratio; Globulin 2.3 g/dL (1.6-3.3); Glucose 86 mg/dL (70-110); Iron 145 UG/DL (65-175); LDL Cholesterol,Calculated 78.5 mg/dL (0.0-131.0); Potassium 4.8 mmol/L (3.5-5.5); Sodium 146 mmol/L (135-145); Total Bilirubin 0.3 mg/dL (0.3-1.2); Total Iron Binding Capacity 391 UG/DL (228-460); Total Protein 7.1 g/dL (6.2-8.2)
== END | disposition home or self-care (01) ==
LOC: LABWHC1 16:26
PROVIDERS: ATTEND Internal Medicine
DX: Z00.00 Encounter for general adult medical examination without abnormal findings (principal); E78.2 Mixed hyperlipidemia; E55.9 Vitamin D deficiency, unspecified; F10.188 Alcohol abuse with other alcohol-induced disorder
CPT/HCPCS: 36415; 80053; 80061; 81001; 82306; 82607; 82728; 82746; 83540; 83550; 83735; 84443; 85025

== ENCOUNTER → 2023-12-29 | Outpatient (CLI) | payer BC ==
--- NOTE | 2023-12-29 11:23 | US ---
EXAMINATION TYPE: US abdomen complete DATE OF EXAM: 12/29/2023 COMPARISON: NONE CLINICAL INDICATION: Male, 48 years old with history of R74.8 ELEVATED LFT'S; pain TECHNIQUE: Multiple sonographic images of the abdomen are obtained. FINDINGS: EXAM MEASUREMENTS: Liver Length: 17.1 cm Gallbladder Wall: 0.2 cm CBD: 0.5 cm Spleen: 9.1 cm Right Kidney: 10.2 x 4.4 x 4.9 cm Left Kidney: 10.7 x 5.1 x 5.3 cm Pancreas: wnl Liver: Anechoic area left lobe 1.0 x 1.0 x 1.2 cm Gallbladder: No stones seen Evidence for sonographic Real's sign: No CBD: wnl Spleen: wnl Right Kidney: wnl Left Kidney: wnl Upper IVC: wnl Abd Aorta: wnl The liver is homogenous with anechoic cyst measuring 10 mm.. The intrahepatic portion of the IVC and proximal abdominal aorta are within normal limits. There is no evidence of cholelithiasis. Common bile duct is unremarkable. The visualized portions of the pancreas are homogenous. The spleen is un remarkable. Kidneys are symmetric and free of hydronephrosis. No renal lesions are seen. IMPRESSION: 1. No evidence for acute process. 2. Simple appearing hepatic cyst.
== END | disposition home or self-care (01) ==
LOC: RADUSWWP 09:11
PROVIDERS: ATTEND Internal Medicine
DX: K76.89 Other specified diseases of liver (principal); R74.8 Abnormal levels of other serum enzymes
CPT/HCPCS: 76700

== ENCOUNTER → 2024-02-20 | Outpatient (CLI) | payer BC ==
[2024-02-20 19:16] LABS: Basophils # (A) 0.03 X 10*3/uL (0.00-0.10); Basophils % (A) 0.6 %; Eosinophils # (A) 0.15 X 10*3/uL (0.04-0.35); Eosinophils % (A) 2.9 %; HCT 43.9 % (39.6-50.0); Lymphocytes # (A) 1.73 X 10*3/uL (0.90-5.00); Lymphocytes % (A) 33.7 %; MCH 32.8 pg (27.0-32.0); MCHC 34.2 g/dL (32.0-37.0); MCV 95.9 FL (80.0-97.0); Mean Platelet Volume 9.6 FL (9.5-12.2); Monocytes # (A) 0.39 X 10*3/uL (0.20-1.00); Monocytes % (A) 7.6 %; NRBC Per 100 WBC 0 X 10*3/uL (0.00-0.01); Neutrophils # (A) 2.81 X 10*3/uL (1.80-7.70); Neutrophils % (A) 54.6 %; Platelet Count 276 X 10*3/uL (140-440); RBC 4.58 X 10*6/uL (4.40-5.60); RDW 11.7 % (11.5-14.5); WBC 5.14 X 10*3/uL (4.50-10.00)
== END | disposition home or self-care (01) ==
LOC: LABWHC1 14:21
PROVIDERS: ATTEND Dermatology
DX: L40.9 Psoriasis, unspecified (principal)
CPT/HCPCS: 36415; 85025

== ENCOUNTER → 2024-07-12 | Outpatient (CLI) | payer BC ==
[2024-07-13 02:57] LABS: Basophils # (A) 0.02 X 10*3/uL (0.00-0.10); Basophils % (A) 0.3 %; Eosinophils # (A) 0.13 X 10*3/uL (0.04-0.35); Eosinophils % (A) 1.9 %; HCT 43.2 % (39.6-50.0); HGB 14.9 g/dL (13.0-17.0); Lymphocytes # (A) 1.41 X 10*3/uL (0.90-5.00); Lymphocytes % (A) 20.9 %; MCHC 34.5 g/dL (32.0-37.0); MCV 92.9 FL (80.0-97.0); Mean Platelet Volume 9.6 FL (9.5-12.2); Monocytes # (A) 0.32 X 10*3/uL (0.20-1.00); Monocytes % (A) 4.7 %; NRBC Per 100 WBC 0 X 10*3/uL (0.00-0.01); Neutrophils # (A) 4.86 X 10*3/uL (1.80-7.70); Neutrophils % (A) 72.1 %; Platelet Count 267 X 10*3/uL (140-440); RBC 4.65 X 10*6/uL (4.40-5.60); RDW 11.7 % (11.5-14.5); WBC 6.75 X 10*3/uL (4.50-10.00)
[2024-07-13 03:19] LABS: ALT 82 U/L (10-49); AST 53 U/L (14-35); Albumin 4.4 g/dL (3.8-4.9); Albumin/Globulin Ratio 2.32 Ratio (1.60-3.17); Alkaline Phosphatase 75 U/L (41-126); BUN/Creat Ratio 13.44 Ratio (12.00-20.00); Blood Urea Nitrogen 12.1 mg/dL (9.0-27.0); Calcium 9.1 mg/dL (8.7-10.3); Chloride 106 mmol/L (96-109); Chol/HDL Ratio 2.58 Ratio; Creatine Kinase 78 U/L (35-257); Globulin 1.9 g/dL (1.6-3.3); Glucose 163 mg/dL (70-110); LDL Cholesterol,Calculated 61.2 mg/dL (0.0-131.0); Potassium 4.5 mmol/L (3.5-5.5); Sodium 141 mmol/L (135-145); Total Bilirubin 0.3 mg/dL (0.3-1.2); Total Protein 6.3 g/dL (6.2-8.2); VLDL Calculation 19.02 mg/dL (5.00-40.00)
== END | disposition home or self-care (01) ==
LOC: LABWHC1 15:57
PROVIDERS: ATTEND Internal Medicine
DX: E78.2 Mixed hyperlipidemia (principal); L40.50 Arthropathic psoriasis, unspecified; R53.83 Other fatigue
CPT/HCPCS: 36415; 80053; 80061; 82550; 85025; 86480

== ENCOUNTER → 2024-11-09 | Outpatient (CLI) | payer BC ==
--- NOTE | 2024-11-09 12:21 | NM ---
EXAMINATION TYPE: NM stress cardiolite complete DATE OF EXAM: 11/09/2024 COMPARISON: NONE CLINICAL INDICATION: Male, 49 years old with history of R00.2 Palpitations; history of hypercholester olemia and tobacco use TECHNIQUE: After the intravenous administration of 10.0 mCi Tc 99m Sestamibi - Rest images obtained 45 minutes post injection. The patient exercised using a ABHI protocol and 1 minute prior to peak exercise was injected with 26.5 mCi Tc 99m Sestamibi - Stress images obtained 10 minutes post injecti on. FINDINGS: Targeted heart rate was achieved during performance of the study. Review of stress and rest SPECT terry ges demonstrates no distinct perfusion abnormality. Gated analysis shows normal wall motion with an estimated left ventricular ejection fraction of 68 %. IMPRESSION: No scintigraphic evidence for reversible ischemia [facility] Jameel Zambrano, , 11/09/2024 12:18 PM
--- NOTE | 2024-11-09 12:25 | CA ---
Exercise Nuclear Stress Test Report Name: [facility] Ya Exam Date: 11/09/2024 10:17 Exam Location: [place] Stress Ht (in): 72 Wt (lb): 188 BSA: 2.08 Ordering Phys: Carlos Garcia MD Referring Phys: CARLOS GARCIA Technologist: Tone Bhatti Age: 49 Gender: M : 1975 Procedure CPT: Indications: R00.2 palpitations ICD-10 Codes: Patient History: Medications: MERTAZAPINE, NALTREXOL, ROSUVASTATIN Meds past 24 hrs: Pretest Chest Pain: STRESS TEST Rakan Protocol Exercise Duration (min:sec): 09:[address] Depressions (mm): Angina Score: Villa Score: Resting HR (bpm): 96 Peak HR (bpm): 150 Resting BP (mmHg): 148 / 84 Peak BP (mmHg): 191 / 68 MPHR: 171 Target HR: 145 % MPHR: 88 METS: 10.3 Total Dose: Peak Dose: Atropine: Double Product: 51266 BP Response: Stress Termination: TARGET HR REACHED/MAX EXERTION Stress Symptoms: NO SYMPTOMS Stress Summary: ECG ANALYSIS Resting ECG: Stress ECG: CONCLUSIONS Patient underwent exercise stressCardiolite with a Rakan protocol treadmill stress test. Patient exercised into Stage 3 for a total of 9 minutes reaching a total of 10.3 METS. Patient's maximum heart rate was 150 which represented 87% age- predicted maximum heart rate. Stress EKG findings: At baseline patient's EKG showed normal sinus rhythm, normal axis, no significant ST or T wave abnormalities. At peak exercise, EKG showed no significant change. Conclusions: 1. Normal EKG response to exercise without evidence of inducible ischemia. 2. Good exercise capacity. 3. Nuclear portion to be reported separately Dr. Stanislav Trujillo DO (Electronically Signed) Final Date: 09 November 2024 12:24
== END | disposition home or self-care (01) ==
LOC: RADNMMAIN 08:50
PROVIDERS: ATTEND Internal Medicine
DX: R00.2 Palpitations (principal); R07.9 Chest pain, unspecified; E78.00 Pure hypercholesterolemia, unspecified; F17.200 Nicotine dependence, unspecified, uncomplicated
CPT/HCPCS: 93017; 78452; A9500

== ENCOUNTER → 2025-02-18 | Outpatient (CLI) | payer BC ==
[2025-02-18 18:25] LABS: Basophils # (A) 0.05 X 10*3/uL (0.00-0.10); Basophils % (A) 0.9 %; Eosinophils % (A) 3.7 %; HCT 44.5 % (39.6-50.0); HGB 15.2 g/dL (13.0-17.0); Lymphocytes # (A) 1.92 X 10*3/uL (0.90-5.00); Lymphocytes % (A) 35.4 %; MCH 32.3 pg (27.0-32.0); MCHC 34.2 g/dL (32.0-37.0); MCV 94.7 FL (80.0-97.0); Mean Platelet Volume 9.3 FL (9.5-12.2); Monocytes # (A) 0.36 X 10*3/uL (0.20-1.00); Monocytes % (A) 6.6 %; NRBC Per 100 WBC 0 X 10*3/uL (0.00-0.01); Neutrophils # (A) 2.89 X 10*3/uL (1.80-7.70); Neutrophils % (A) 53.2 %; Platelet Count 270 X 10*3/uL (140-440); RDW 11.9 % (11.5-14.5); WBC 5.43 X 10*3/uL (4.50-10.00)
== END | disposition home or self-care (01) ==
LOC: LABWHC1 14:46
PROVIDERS: ATTEND Internal Medicine
DX: R53.83 Other fatigue (principal)
CPT/HCPCS: 36415; 85025